=== PATIENT | male | born 1965 | race Caucasian/White ===

== ENCOUNTER 2018-03-18 16:41 | Emergency (ER) | payer MEDICAID, SELFPAY ==
[2018-03-18 16:48] VITALS: BP 127/87; PULSE 125; RESP 16; TEMP 36.9; O2SAT 99; BMI 29.4
--- NOTE | 2018-03-18 16:49 | ED.DENTAL ---
HPI - Dental/Oral <FRANK Calderon - Last Filed: 03/18/18 22:08> General Chief complaint: Dental/Oral Stated complaint: ABCESS IN MOUTH Time Seen by Provider: 03/18/18 16:49 Source: patient Mode of arrival: ambulatory Limitations: no limitations History of Present Illness HPI Narrative: 52-year-old healthy male that was a former smoker here for complaint of swelling into his upper front gums and lips over the past couple of days. He does state that he accidentally bit that area few days ago. He has a history of having a dental fractures to the area. He does not have a dentist. He states he has had a small amount of purulent drainage from the area. He denies having any fevers or chills. Positive p.o. intake. He states that he is concerned about a dental abscess. He denies any other concerns or complaints at this time. Complaint: tooth pain Related Data Previous Rx's Medication Instructions Recorded clindamycin HCl 300 mg PO QID #16 cap 03/18/18 Allergies Allergy/AdvReac Type Severity Reaction Status Date / Time No Known Drug Allergies Allergy Verified 03/18/18 16:48 Review of Systems <FRANK Calderon - Last Filed: 03/18/18 22:08> Constitutional Denies chills, Denies fever(s), Denies lethargy and Denies weakness Eyes Denies change in vision, Denies eye discharge, Denies irritation and Denies loss of vision ENT Comments: Gum and upper lip swelling Cardiovascular Denies chest pain, Denies irregular heart rhythm, Denies lightheadedness, Denies palpitations, Denies dyspnea, Denies dyspnea on exertion and Denies orthopnea Respiratory Denies cough, Denies dyspnea, Denies dyspnea on exertion and Denies wheezing Gastrointestinal Gastrointestinal: Denies abdominal pain, Denies change in bowel habits, Denies diarrhea, Denies nausea and Denies vomiting Genitourinary Denies hematuria, Denies flank pain, Denies urinary incontinence and Denies urinary urgency Musculoskeletal Denies back pain, Denies muscle weakness, Denies numbness and Denies tingling Integumentary/Breasts Denies pruritus, Denies erythema, Denies rash and Denies wounds Neurologic Denies loss of vision, Denies numbness, Denies tingling and Denies weakness Endocrine Denies palpitations Allergic/Immunologic Denies wheezing Exam <FRANK Calderon - Last Filed: 03/18/18 22:08> Initial Vital Signs Initial Vital Signs: Vital Signs Temperature 98.4 F 03/18/18 16:48 Pulse Rate 125 H 03/18/18 16:48 Respiratory Rate 16 03/18/18 16:48 Blood Pressure 127/87 03/18/18 16:48 Pulse Oximetry 99 03/18/18 16:48 Const General: cooperative and well developed Nutritional Appearance: well nourished Orientation: alert, awake, oriented x3 and not confused HENNY Mouth: moist mucous membranes Teeth and gingiva: abnormal tooth or associated gingiva and poor dentition Eyes Conjunctivae: conjunctivae normal Sclera: sclerae normal Pupils: PERRL EOM: EOM intact bilaterally Resp Effort & Inspection: normal respiratory effort, able to speak in complete sentences, no respiratory distress and no use of accessory muscles Auscultation: clear to auscultation bilaterally, no rales, no rhonchi and no wheezes Cardio Rate: regular rate Rhythm: regular rhythm Heart Sounds: no click, no gallops, no murmurs and no rubs Pulses: normal peripheral pulses Skin General: no rashes or lesions noted, No jaundice and No petechiae Neuro General: alert, oriented x3, gait normal and no focal motor deficits Speech: speech normal <Lupillo Beckwith DO - Last Filed: 03/19/18 05:52> Initial Vital Signs Initial Vital Signs: Vital Signs Temperature 98.4 F 03/18/18 16:48 Pulse Rate 125 H 03/18/18 16:48 Respiratory Rate 16 03/18/18 16:48 Blood Pressure 127/87 03/18/18 16:48 Pulse Oximetry 99 03/18/18 16:48 Procedures <FRANK Calderon - Last Filed: 03/18/18 22:08> Abscess I/D Site: oral Local Anesthetic: lidocaine 1% Amount of anesthesia used (mL): 2 Technique: needle aspiration Amount of fluid expressed (mL): 10 Irrigation: No Packing used?: none Course <FRANK Calderon - Last Filed: 03/18/18 22:08> Orders Ordered: Discontinued Medications Sodium Chloride (Normal Saline 0.9%) 1,000 mls @ 1,000 mls/hr IV BOLUS ONE Stop: 03/18/18 18:09 Last Infusion: 03/18/18 19:39 Dose: 0 mls/hr Admin: 03/18/18 17:34 Dose: 1,000 mls/hr Clindamycin Phosphate (Cleocin) 900 mg in 50 mls @ 50 mls/hr IV NOW ONE Stop: 03/18/18 18:22 Last Infusion: 03/18/18 18:53 Dose: 0 mls/hr Admin: 03/18/18 17:34 Dose: 50 mls/hr Ketorolac Tromethamine (Toradol) 30 mg IV NOW ONE Stop: 03/18/18 17:11 Last Admin: 03/18/18 17:39 Dose: 30 mg Vital Signs - 8 hr 03/18/18 16:48 03/18/18 18:16 03/18/18 19:02 Temperature 98.4 F Pulse Rate 125 H 115 H 103 H Respiratory Rate 16 15 18 Blood Pressure 127/87 Blood Pressure [Left Arm] 118/74 107/78 Pulse Oximetry 99 99 100 03/18/18 19:21 Temperature Pulse Rate 100 H Respiratory Rate Blood Pressure Blood Pressure [Left Arm] Pulse Oximetry <Lupillo Beckwtih, DO - Last Filed: 03/19/18 05:52> Orders Ordered: Discontinued Medications Sodium Chloride (Normal Saline 0.9%) 1,000 mls @ 1,000 mls/hr IV BOLUS ONE Stop: 03/18/18 18:09 Last Infusion: 03/18/18 19:39 Dose: 0 mls/hr Admin: 03/18/18 17:34 Dose: 1,000 mls/hr Clindamycin Phosphate (Cleocin) 900 mg in 50 mls @ 50 mls/hr IV NOW ONE Stop: 03/18/18 18:22 Last Infusion: 03/18/18 18:53 Dose: 0 mls/hr Admin: 03/18/18 17:34 Dose: 50 mls/hr Ketorolac Tromethamine (Toradol) 30 mg IV NOW ONE Stop: 03/18/18 17:11 Last Admin: 03/18/18 17:39 Dose: 30 mg Vital Signs - 8 hr 03/18/18 16:48 03/18/18 18:16 03/18/18 19:02 Temperature 98.4 F Pulse Rate 125 H 115 H 103 H Respiratory Rate 16 15 18 Blood Pressure 127/87 Blood Pressure [Left Arm] 118/74 107/78 Pulse Oximetry 99 99 100 03/18/18 19:21 Temperature Pulse Rate 100 H Respiratory Rate Blood Pressure Blood Pressure [Left Arm] Pulse Oximetry MDM - Dental/Oral <Oniel CotaFRANK - Last Filed: 03/18/18 22:08> [facility] Narrative Medical decision making narrative: Abscess to upper frontal gum area and to the upper lip was not the size using lidocaine. Small needle I and D was completed with a good amount of purulent drainage removed. Patient's heart rate was elevated at 125. He was given Toradol and fluids in the emergency room which normalized his heart rate. He was started on a clindamycin IV. He is prescribed clindamycin orally. [id number] Tylenol or Motrin as needed for any discomfort. Patient to follow up with dentist here this week. For any worsening symptoms return to the emergency room. Discharge Plan Departure Patient Disposition: Home Clinical Impression: Dental abscess Discharge Date/Time: 03/18/18 19:46 Interventions: ED Discharge Assessment Last Done: 03/18/18 19:44 Instructions: Tooth Abscess Activity Restrictions/Additional Instructions: Sinus symptoms presents as a dental abscess. Abscess was incised and drained today in the emergency room. You were started on antibiotic called clindamycin. Prescription for clindamycin oral tablets is provided fill prescription tomorrow morning and start taking as directed. Use [id number] Tylenol Motrin as needed for any discomfort. Follow up with dentist here later this week. For any worsening symptoms return to the emergency room. Prescriptions: New clindamycin HCl 300 mg capsule 300 mg PO QID Qty: 16 RF: 0 Referrals: Masoud Nuñez MD [Primary Care Provider] - <Lupillo Beckwith DO - Last Filed: 03/19/18 05:52> Cosign ED Attending Jamesature Attestation: I was immediately available in the department for consultation. Documentation has been reviewed. I agree with assessment and plan.
[2018-03-18] MEDS: SODIUM CHLORIDE 0.9% 1,000 ML 1000 ML IV (17:34)
[2018-03-18] MEDS: CLINDAMYCIN 900 MG/50 ML PIGGYBACK 50 MG IV (17:34)
[2018-03-18] MEDS: KETOROLAC 60 MG/2 ML VIAL 30 MG IV (17:39)
[2018-03-18 18:16] VITALS: BP 118/74; PULSE 115; RESP 15; O2SAT 99
--- NOTE | 2018-03-18 18:48 | PC.NURSE ---
1625 - oral contrast to patient
[2018-03-18 19:02] VITALS: BP 107/78; PULSE 103; RESP 18; O2SAT 100
[2018-03-18 19:21] VITALS: PULSE 100
== END 2018-03-18 19:46 | disposition home or self-care (01) ==
PROVIDERS: Emergency Provider Nurse Practitioner Family; PCP Internal Medicine
DX: K04.7 Periapical abscess without sinus (principal)
CPT/HCPCS: 10060; 36591; 96361; 96365; 96375; 99283; 99284; J1885